=== PATIENT | female | born 1965 | race Caucasian/White ===

== ENCOUNTER 2019-01-22 13:26 | Day surgery (SDC) | payer OTHER ==
[2019-01-21 11:34] VITALS: BMI 20.8
[2019-01-22 13:55] VITALS: TEMP 98.2
[2019-01-22] MEDS ORDERED: MIDAZOLAM HCL 2 MG/2 ML SINGLE DOSE VIAL ONE (14:23)
[2019-01-22] MEDS ORDERED: ROPIVACAINE HCL 0.5% 30ML VIAL ONE (14:24)
[2019-01-22] MEDS ORDERED: PROPOFOL 20 ML ONE ×2 (15:44→16:24)
[2019-01-22] MEDS ORDERED: ceFAZolin SODIUM 1 GM VIAL ONE ×2 (16:24)
[2019-01-22] MEDS ORDERED: LIDOCAINE HCL/PF 2% SDV 5ML VIAL ONE (16:24)
[2019-01-22] MEDS ORDERED: ONDANSETRON 4 MG/2 ML VIAL ONE (16:24)
[2019-01-22] MEDS ORDERED: DEXAMETHASONE SOD PHOSPHATE 4 MG/1 ML VIAL ONE (16:24)
--- NOTE | 2019-01-22 17:21 | OP ---
DATE OF OPERATION: 01/22/2019 PREOPERATIVE DIAGNOSIS: Right distal radius fracture, acute carpal tunnel syndrome. POSTOPERATIVE DIAGNOSIS: Right distal radius fracture, acute carpal tunnel syndrome. PROCEDURE: Right distal radius open reduction internal fixation, carpal tunnel release. SURGEON: Corrine Batista MD MEAT SELECTOR: Isidro Tiwari MD, KYUNG Mathur Dr.'s assistance was necessary for the safe and timely performance of this procedure. Dr. Tiwari was able to provide wrist positioning, retraction, assist in fracture reduction, insertion of orthopaedic fixation hardware as well as carpal tunnel release. ANESTHESIA: Regional with sedation. POSTOPERATIVE CONDITION: Stable. COMPLICATIONS: None. IMPLANTS: Acumed distal radius plate with associated nonlocking 3.5 shaft screws and distal locking screws x4 along with peg. INDICATIONS: This is a pleasant woman who suffered slip and fall at work. She was initially seen in the emergency department where a closed reduction was performed of her wrist. Post reduction radiographs demonstrated incomplete reduction, and treatment options were discussed including nonoperative care with malunion versus operative care with improved reduction stability. I reviewed surgical risks in detail including bleeding, infection, neurovascular injury, need for further surgery, postoperative pain and stiffness, nonunion, malunion, hardware failure or cut out. We discussed that she had some injury to her median nerve as evidenced by some mild weakness and sensory disturbances in her hand due to an injury of the median nerve from the fracture. We discussed the option of observation versus performing a concurrent carpal tunnel release at the time of her next procedure given her median nerve symptoms. Given the minimal increase in morbidity and potential need for a 2nd procedure if we just observe, she elected to proceed with carpal tunnel release at the start. I reviewed recovery with the patient. Discussed the use of perioperative antibiotics and DVT prophylaxis. She voiced understanding and elected to proceed. DESCRIPTION OF PROCEDURE: Patient was brought to the operating room where she was placed supine on the operating room table. A block had previously been applied in the holding area. The right upper extremity was now prepped and draped in the usual sterile fashion. A preoperative dose of antibiotics was given, and the usual time-out procedure was performed. Incision was now planned out over the FCR tendon. The limb was then exsanguinated. Tourniquet was inflated to 250 mmHg. Incision was now carried down through skin through subcutaneous tissue. Blunt spreading was used to expose the fascia over the FCR. The FCR fascia was then released in line with the limb. The FCR was then retracted ulnarly to expose the fascia over the pronator, which was dissected down. The pronator was then exposed demonstrating that it was shredded from the injury. The remnants of it were elevated off the distal radius with a henderson elevator. Now a plate was now chosen. The plate was fixed down through the bone with a K-wire. Provisional reduction was obtained. Satisfactory position was noted. A 3.5 shaft screw was now inserted in the oblong hole. Plate position was finely tuned utilizing fluoroscopy and visual inspection. The fracture was then reduced down to the plate. Two K-wires were placed distally to make end reduction. Two distal screws were then placed securing the reduction in place. The K-wire was then removed. An additional peg was placed on the more ulnar aspect of the construct. The 2 radial styloid locking screws were inserted as well. At this point, the entire construct was examined both visually and fluoroscopically. Both fracture reduction and hardware placement were satisfactory. Two additional shaft screws were now placed by drilling and then measuring and inserting screws to the appropriate length, 3.5 mm. At this point, the wound was copiously irrigated. The gauze was placed. Attention was now turned to the carpal tunnel. An incision was marked out over the ulnar crease. This was carried down through skin through subcutaneous tissue. Blunt spreading was used to expose the fascia over the carpal tunnel. Transverse cardinal ligament was now incised freeing up the contents of the carpal tunnel. This wound was now irrigated. The skin here was closed with 4-0 nylon mattress sutures. The previous incision was closed subcutaneously with 4-0 Vicryl. The skin was then closed using a running 4-0 nylon. Sterile dressings were placed. The patient was placed into a wrist splint. The tourniquet was left down after just over an hour. She was transferred to the recovery room in stable condition. CORRINE BATISTA M.D. [id number]
[2019-01-22 18:22] VITALS: PULSE 67
[2019-01-22 18:24] VITALS: BP 126/69
== END 2019-01-22 18:15 | disposition home or self-care (01) ==
LOC: FASU 13:26
PROVIDERS: ATTEND Orthopaedic Surgery Sports Medicine
PROC: 01N50ZZ Release Median Nerve, Open Approach (ICD-10-PCS; 2019-01-22)
PROC: 0PSH04Z Reposition Right Radius with Internal Fixation Device, Open Approach (ICD-10-PCS; principal; 2019-01-22 15:23)
DX: S52.501A Unspecified fracture of the lower end of right radius, initial encounter for closed fracture (principal); W18.30XA Fall on same level, unspecified, initial encounter; Y93.9 Activity, unspecified; Y92.89 Other specified places as the place of occurrence of the external cause; Y99.0 Civilian activity done for income or pay; G56.01 Carpal tunnel syndrome, right upper limb
CPT/HCPCS: 25608; 64721; C1713; 73110-TC-RT-FY; 94760